=== PATIENT | male | born 1980 ===

== ENCOUNTER 2022-08-24 17:24 | Emergency (ER) | payer SELFPAY ==
[~2022-08-24] VITALS: Ht 162.6 cm; Wt 68.2 kg
[2022-08-24 17:40] VITALS: TEMP 98.5
[2022-08-24] MEDS ORDERED: DOXYCYCLINE HY100 MG PO (18:20)
[2022-08-24] MEDS ORDERED: PREDNISONE20 MG PO (18:20)
[2022-08-24 18:49] VITALS: BP 127/96; PULSE 86
== END 2022-08-24 18:50 | disposition home or self-care (01) ==
LOC: COL.ER 17:24
DX: R21 Rash and other nonspecific skin eruption (principal); F17.210 Nicotine dependence, cigarettes, uncomplicated; Z28.310 Unvaccinated for COVID-19
CPT/HCPCS: J7512